=== PATIENT | female | born 1955 | race African-American/Black ===

== ENCOUNTER 2017-01-06 14:41 | Inpatient (IN) | payer OTHER ==
[~2017-01-06] VITALS: Ht 167.6 cm; Wt 116.1 kg
[2017-01-07 10:21] VITALS: BP 113/65; PULSE 82; TEMP 96.8
[2017-01-07] MEDS ORDERED: NEURONTIN300 MG/CAP PO (13:57)
[2017-01-07] MEDS ORDERED: PRINIVIL40 MG PO (13:59)
[2017-01-07] MEDS ORDERED: PREDNISONE20 MG PO (13:59)
[2017-01-07] MEDS ORDERED: HCTZ 25MG TAB25 MG PO (14:00)
[2017-01-07] MEDS ORDERED: TOPROL XL 50MG50 MG PO (14:01)
[2017-01-07 17:28] VITALS: BP 104/57; PULSE 60; TEMP 97.6
[2017-01-08 04:18] VITALS: BP 102/61; PULSE 69; TEMP 98.7
[2017-01-08 15:04] VITALS: BP 90/50; PULSE 55; TEMP 97.8
[2017-01-09 04:41] VITALS: BP 100/40; PULSE 60; TEMP 98.2
[2017-01-09 07:52] LABS: BASO % 0.1 % (0.0-2.0); EOS # 0.1 (0.0-0.7); EOS % 0.6 % (0-4.0); GRAN # 3.7 (1.4-6.5); GRAN % 44.2 % (42.2-75.2); HEMATOCRIT 40.8 % (37.0-47.0); LYMPH # 4.3 (1.2-3.4); LYMPH % 50.5 % (20.0-51.0); MEAN CELL VOLUME 73 fl (80.0-100.0); MEAN CORPUSCULAR HEMOGLOBIN 23 pg (27.0-31.0); MEAN CORPUSCULAR HGB CONC 32 g/dl (33.0-37.0); MEAN PLATELET VOLUME 10.9 fl (7.4-10.4); MONO # 0.4 (0.1-0.6); MONO % 4.2 % (1.7-9.3); PLATELET COUNT 191 K/mm3 (130-400); RED BLOOD COUNT 5.61 M/mm3 (4.10-5.30); REDCELL DISTRIBUTION WIDTH-CV 15.5 % (11.5-14.5); WHITE BLOOD COUNT 8.4 K/mm3 (4.8-10.8)
[2017-01-09 08:00] LABS: CALCIUM 8.6 mg/dL (8.4-10.2); CREATININE, serum 0.76 mg/dL (0.52-1.25); MAGNESIUM 2.3 mg/dL (1.6-2.3); POTASSIUM 3.9 mmol/L (3.4-5.0)
[2017-01-09 17:22] VITALS: BP 99/53; PULSE 65; TEMP 98.5
[2017-01-09 21:00] VITALS: BP 101/54; PULSE 59
[2017-01-10 06:00] VITALS: BP 103/63; PULSE 65; TEMP 98.2
[2017-01-10 16:11] VITALS: BP 118/72; PULSE 69; TEMP 98.3
[2017-01-11 06:09] VITALS: BP 124/68; PULSE 77; TEMP 97.5
[2017-01-11 17:19] VITALS: BP 124/77; PULSE 63; TEMP 97.9
[2017-01-12 03:15] VITALS: BP 107/73; PULSE 63; TEMP 98.4
[2017-01-12 17:44] VITALS: BP 126/68; PULSE 88; TEMP 98.7
[2017-01-13 07:44] VITALS: BP 105/67; PULSE 75; TEMP 98.5
[2017-01-13 16:38] VITALS: BP 136/69; PULSE 94; TEMP 98.9
[2017-01-14 05:45] VITALS: BP 123/64; PULSE 77; TEMP 97.8
[2017-01-14 17:52] VITALS: BP 121/62; PULSE 62; TEMP 98
[2017-01-15 05:05] VITALS: BP 113/56; PULSE 70; TEMP 98.2
[2017-01-15 15:46] VITALS: BP 122/70; PULSE 79; TEMP 97.2
[2017-01-16 03:59] VITALS: BP 119/56; PULSE 72; TEMP 98.1
[2017-01-16 07:47] VITALS: BP 136/69; PULSE 78
[2017-01-16 16:55] VITALS: BP 132/82; PULSE 81; TEMP 98.8
[2017-01-17 05:19] VITALS: BP 109/56; PULSE 80; TEMP 97.9
[2017-01-17 07:28] VITALS: BP 134/76; PULSE 77
[2017-01-17 17:58] VITALS: BP 129/76; PULSE 81; TEMP 98.4
[2017-01-18 04:57] VITALS: BP 116/51; PULSE 66; TEMP 97.7
[2017-01-18 07:44] VITALS: BP 115/72; PULSE 75
[2017-01-18 17:08] VITALS: BP 118/82; PULSE 85; TEMP 98.2
[2017-01-19 04:38] VITALS: BP 104/53; PULSE 71; TEMP 97.1
[2017-01-19 16:18] VITALS: BP 122/70; PULSE 93; TEMP 98.2
[2017-01-20 04:50] VITALS: BP 117/58; PULSE 77; TEMP 97.2
[2017-01-20 16:15] VITALS: BP 132/64; PULSE 77; TEMP 98.6
[2017-01-21 06:00] VITALS: BP 95/44; PULSE 56; TEMP 97.5
[2017-01-21 09:03] VITALS: BP 97/51; PULSE 83
[2017-01-21 16:49] VITALS: BP 112/69; PULSE 93; TEMP 98.1
[2017-01-22 06:30] VITALS: BP 118/60; PULSE 70; TEMP 98.8
[2017-01-22 16:57] VITALS: BP 111/74; PULSE 77; TEMP 98
[2017-01-23 04:35] VITALS: BP 106/48; PULSE 66; TEMP 97.8
[2017-01-23 16:29] VITALS: BP 133/69; PULSE 72; TEMP 98.2
[2017-01-24 06:38] VITALS: BP 132/60; PULSE 78; TEMP 97.7
[2017-01-24 16:18] VITALS: BP 137/71; PULSE 80; TEMP 98.4
[2017-01-25 05:02] VITALS: BP 121/60; PULSE 69; TEMP 98.3
[2017-01-25 17:59] VITALS: BP 130/65; PULSE 77; TEMP 98.3
[2017-01-26 04:10] VITALS: BP 105/52; PULSE 79; TEMP 98.6
[2017-01-26 18:51] VITALS: BP 125/63; PULSE 79; TEMP 98.8
[2017-01-27 05:31] VITALS: BP 122/54; PULSE 82; TEMP 97.9
[2017-01-27 18:15] VITALS: BP 118/61; PULSE 86; TEMP 98.5
[2017-01-28 04:44] VITALS: BP 116/50; PULSE 81; TEMP 98.2
[2017-01-28 17:20] VITALS: BP 129/71; PULSE 76; TEMP 98.3
[2017-01-29 05:42] VITALS: BP 123/61; PULSE 71; TEMP 98.2
[2017-01-29 16:52] VITALS: BP 131/67; PULSE 70; TEMP 98.5
[2017-01-30 04:50] VITALS: BP 120/55; PULSE 71; TEMP 98.1
[2017-01-30 18:13] VITALS: BP 121/52; PULSE 78; TEMP 98.2
[2017-01-31 06:00] VITALS: BP 119/66; PULSE 73; TEMP 98.6
[2017-01-31 18:58] VITALS: BP 122/65; PULSE 98; TEMP 99.1
[2017-02-01 04:26] VITALS: BP 116/61; PULSE 74; TEMP 98.6
[2017-02-01 09:20] VITALS: BP 100/59; PULSE 73
[2017-02-01 18:11] VITALS: BP 120/59; PULSE 73; TEMP 97.3
[2017-02-02 05:48] VITALS: BP 110/45; PULSE 75; TEMP 97.8
[2017-02-02 16:36] VITALS: BP 117/65; PULSE 98; TEMP 98.9
[2017-02-03 06:06] VITALS: BP 137/70; PULSE 82; TEMP 98.5
[2017-02-03] MEDS ORDERED: IRON325 M2 PO (10:41)
[2017-02-03] MEDS ORDERED: TOPROL XL 25MG25 MG PO (10:42)
[2017-02-03] MEDS ORDERED: NEURONTIN300 MG/CAP PO (10:42)
[2017-02-03] MEDS ORDERED: FOLIC ACID 11 MG/TA1 PO (10:45)
[2017-02-03] MEDS ORDERED: NYSTATIN POWDER30 GM TOP (10:45)
[2017-02-03] MEDS ORDERED: HCTZ 25MG TAB25 MG PO (10:45)
== END 2017-02-03 14:50 | disposition home health service (06) | DRG 948 ==
PROVIDERS: Internal Medicine
DX: R53.81 Other malaise (principal); Z68.41 Body mass index [BMI] 40.0-44.9, adult; G35 Multiple sclerosis; I10 Essential (primary) hypertension; E66.01 Morbid (severe) obesity due to excess calories; Z91.81 History of falling; G47.33 Obstructive sleep apnea (adult) (pediatric); J02.9 Acute pharyngitis, unspecified; R20.8 Other disturbances of skin sensation
CPT/HCPCS: 99222-AI; 99232-AI; 99239; J1650; J7512